=== PATIENT | female | born 1960 | race Caucasian/White ===

== ENCOUNTER → 2023-11-23 | Outpatient (CLI) | payer MEDICARE ==
--- NOTE | 2023-11-23 13:25 | USB ---
Reason for Exam: Additional evaluation requested from abnormal screening. Patient History: Menarche at age 13. First Full-Term at age 20. Postmenopausal. Estrogen for 5 years from age 43 until age 50. Reduction on the Right side. Reduction on the Left side. Excisional Biopsy on the Left side. Maternal aunt had breast cancer, age 68. Mother had breast cancer, age 63. Risk Values: Susanna 5 year model risk: 3.6%. NCI Lifetime model risk: 14.5%. Technique: Method: Targeted. Prior Study Comparison: 04/05/2008 Screening Mammogram, [facility]. 06/26/2009 Bilateral Screening Mammogram, [facility]. 07/28/2010 Bilateral Screening Mammogram, [facility]. Findings: The upper outer quadrant of the left breast, the axilla of the left breast and the retroareolar of the left breast were scanned. There is an irregular hypoechoic area with some posterior shadowing. The spiculated densities are suggestive for malignancy and measures 1.6 x 2.1 x 1.4 cm. This is taller than wide. This is located 3:00 position 10 cm from the nipple. This correlates with the mammographic finding. Overall Assessment: Highly suggestive of malignancy, BI-RAD 5 Management: Surgical Consultation of the left breast. Ultrasound Core Biopsy of the left breast. A clinical breast exam by your physician is recommended on an annual basis and results should be correlated with mammographic findings. This exam should not preclude additional follow-up of suspicious palpable abnormalities. Results were given to the patient verbally at the time of exam. Electronically signed and approved by: Karl Patel D.O. Radiologis
== END | disposition home or self-care (01) ==
LOC: RADUSWWP 11:15
PROVIDERS: ATTEND Family Medicine
DX: R92.8 Other abnormal and inconclusive findings on diagnostic imaging of breast (principal); Z80.3 Family history of malignant neoplasm of breast; Z78.0 Asymptomatic menopausal state

== ENCOUNTER → 2023-12-01 | Day surgery (SDC) | payer MEDICARE ==
--- NOTE | 2023-12-07 10:10 | MM ---
Reason for Exam: Post Procedure Mammogram. Last mammogram was performed 13 year(s) and 4 month(s) ago. Patient History: Menarche at age 13. First Full-Term at age 20. Postmenopausal. Estrogen for 5 years from age 43 until age 50. Reduction on the Right side. Reduction on the Left side. Excisional Biopsy on the Left side. Maternal aunt had breast cancer, age 68. Mother had breast cancer, age 63. Risk Values: Susanna 5 year model risk: 3.6%. NCI Lifetime model risk: 14.5%. Prior Study Comparison: 10/10/1997 Bilateral Diagnostic Mammogram, [facility]. 11/28/1999 Bilateral Special View Mammogram, [facility]. 04/05/2008 Screening Mammogram, [facility]. 06/26/2009 Bilateral Screening Mammogram, [facility]. 07/28/2010 Bilateral Screening Mammogram, [facility]. 11/23/2023 Left US breast workup limited , [facility]. Tissue Density: Left: The breasts are heterogeneously dense, which may obscure small masses. Pathology Description: Location: 3 o'clock. Marker Left Behind. Needle Type: Mammotome Cores: 5 Skin Nicks: 1 Gauge: 13 The procedure of ultrasound guided core biopsy was explained to the patient. Benefits, alternatives, and risks were discussed. An informed consent was then obtained. A timeout was performed. The patient was placed in supine positioning for imaging and for the procedure. The overlying skin was prepped and draped in usual sterile fashion. Lidocaine was used as anesthetic into the skin and subcutaneous tissue up to area of concern in the left breast. A small skin krystal was made with surgical scalpel. Under ultrasound guidance, a 12-gauge vacuum assisted biopsy gun device was used to obtain 5 core samples. A biopsy clip was left in lesion. Hydromark coil core marker was placed. The patient tolerated the procedure well without any immediate complication. The patient was kept in the radiology department for short stay after the procedure and then discharged home in stable condition. Postprocedure mammogram: The patient was transferred to mammography for physician ordered post procedure mammogram for clip placement verification. Post procedure mammogram clip in the mid lateral breast. This appears to correlate with the previous palpable abnormality. Impression: Successful ultrasound guided core biopsy of area of concern in the left breast, full pathology results to follow. Recommendations: 1. Recommendations are pending pathology results. Pathology Results: Result: Malignant, Invasive ductal carcinoma. Pathology and radiology were reviewed. Findings are concordant. 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 See Surgical Pathology Cancer Case Summary. Overall Assessment: Malignant Assessment: MG diagnostic mammo LT wo CAD. - Left: Known biopsy proven malignancy, BI-RAD 6. Management: Surgical Consultation of the left breast. Electronically signed and approved by: Karl Patel D.O. Radiologis
== END ==
LOC: RADUSWWP 12:56
PROVIDERS: ATTEND Surgery
DX: D05.12 Intraductal carcinoma in situ of left breast (principal); R92.8 Other abnormal and inconclusive findings on diagnostic imaging of breast; Z17.0 Estrogen receptor positive status [ER+]; Z78.0 Asymptomatic menopausal state
CPT/HCPCS: 88305; 88342; 88341; 77065; 19083; A4648

== ENCOUNTER → 2024-10-12 | Outpatient (CLI) | payer MEDICARE ==
--- NOTE | 2024-10-12 15:07 | USB ---
Reason for Exam: Clinical finding. Patient History: Menarche at age 13. First Full-Term at age 20. Postmenopausal. Breast cancer, left, age 63. Estrogen for 5 years from age 43 until age 50. 12/01/2023, Malignant US biopsy breast VAD LT on the left side. Reduction on the Right side. Reduction on the Left side. Excisional Biopsy on the Left side. Maternal aunt had breast cancer, age 68. Mother had breast cancer, age 63. Technique: Method: Whole Breast Handheld. Prior Study Comparison: 06/26/2009 Bilateral Screening Mammogram, [facility]. 07/28/2010 Bilateral Screening Mammogram, [facility]. 12/01/2023 Left MG diagnostic mammo LT wo CAD., [facility]. Findings: The whole breast of the left breast, the axilla of the left breast and the retroareolar of the left breast were scanned. A complete US of all four quadrants of the left breast, axilla, and retro-areolar region were reviewed. Known, biopsy-proven carcinoma 3:00 left breast, 10 cm from the nipple, currently measuring larger at 2.4 cm versus 1.9 cm, previously. New is a vertically oriented, hypoechoic area in the axilla measuring 9 x 6 x 5 mm. Possible small, replaced lymph node for which tissue sampling is recommended. No other solid or cystic lesion or axillary adenopathy. Overall Assessment: Known biopsy proven malignancy, BI-RAD 6 Management: Ultrasound Core Biopsy of the left breast. Axillary site. Surgical consultation for patient's missed surgery. Recommend additional ongoing oncologic management/follow-up. Results were given to the patient verbally at the time of exam. [facility], , 10/12/2024 3:02 PM. Electronically signed and approved by: Gilma Mehta M.D. Radiologist
--- NOTE | 2024-10-12 19:04 | CT ---
EXAMINATION TYPE: CT ChestAbdPelvis w con DATE OF EXAM: 10/12/2024 5:19 PM COMPARISON: 10/12/2024 ultrasound. CLINICAL INDICATION: Female, 64 years old with history of C50.812 BREAST; LEFT BREAST MASS, breast ca Technique: CT ChestAbdPelvis w con; Multiple axial images were obtained. Two-dimensional coronal and sagittal reconstructions were obtained. Contrast used:100ml mL of Isovue 300 with IV Contrast, (None if empty) Oral contrast used: with Oral Contrast CT DLP: 1564.3 mGycm, Automated exposure control for dose reduction was used. Findings: CHEST: LUNGS/ PLEURA: No focal consolidation, pneumothorax or pleural effusion. Scattered pulmonary nodules including right lower lobe superior segment series 10 image 107 measuring 6 mm and image 103 measurin g 5 mm. 5 mm left lower lobe anterior nodule series 10 image 41. AIRWAY: Patent and unremarkable. HEART: Size within normal limits. No significant coronary artery calcifications. MEDIASTINUM: No gross evidence of adenopathy. VASCULATURE: No aortic aneurysm. MUSCULOSKELETAL: No acute osseous abnormalities. Severe degeneration changes shoulder with joint join t articulation. SOFT TISSUES/LYMPH NODES: Left breast mass measuring 16 x 17 mm no enlarged left axillary lymph nodes . LOWER NECK: No significant findings. ABDOMEN: ABDOMEN LIVER: Diffusely hypoattenuating parenchyma. GALLBLADDER AND BILE DUCTS: Gallbladder is surgically absent with mild intrahepatic and extra hepatic biliary dilatation up to 28 mm likely physiologic and a postcholecystectomy change. No evidence of c holedocholithiasis. PANCREAS: Unremarkable. SPLEEN: Unremarkable. ADRENAL GLANDS: Unremarkable. KIDNEYS AND URETERS: No evidence of hydronephrosis or obstructing renal calculus. The ureters are unr emarkable. 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 REPRODUCTIVE: Unremarkable. ABDOMEN & PELVIS STOMACH AND BOWEL: No evidence of bowel obstruction. PERITONEUM/RETROPERITONEUM: No evidence of pneumoperitoneum or free fluid. VASCULATURE: No evidence of aortic aneurysm. MUSCULOSKELETAL: No acute osseous abnormalities, grade 1 anterolisthesis of L3 on L4. Multilevel dege neration changes with osteophyte formation disc space narrowing and osteophyte formation LYMPH NODES: No gross evidence for lymphadenopathy. SOFT TISSUE/ABDOMINAL WALL: Fat-containing right inguinal canal. IMPRESSION: 1. Left breast mass without evidence for lymphadenopathy. There are a few scattered pulmonary nodule s which are indeterminant given single exam can't history of malignancy. Attention on follow-up imagi ng for these lesions to exclude metastatic pulmonary disease. Consider correlation with either CT honorio ging of the chest at outside institutions. 2. Cholecystectomy changes with dilation of the central hepatic and extra hepatic biliary system. Co nsider further evaluation with MRCP. 3. Hepatic steatosis. 4. Urethra ureterocele Follow up recommendations for incidental pulmonary nodules are per [employer] or [employer]. [facility], , 10/12/2024 7:02 PM
--- NOTE | 2024-10-16 08:55 | MM ---
Reason for Exam: Additional evaluation requested from prior study. Last screening mammogram was performed 11 month(s) ago. Patient History: Menarche at age 13. First Full-Term at age 20. Postmenopausal. Breast cancer, left, age 63. Estrogen for 5 years from age 43 until age 50. 12/01/2023, Malignant US biopsy breast VAD LT on the left side. Reduction on the Right side. Reduction on the Left side. Excisional Biopsy on the Left side. Maternal aunt had breast cancer, age 68. Mother had breast cancer, age 63. Prior Study Comparison: 10/02/2016 Bilateral MG 3D screening mammo w/cad, Unknown. 11/11/2023 Bilateral MG screening mammo w CAD - 2, Unknown. 12/01/2023 Left MG diagnostic mammo LT wo CAD., [facility]. Tissue Density: There are scattered areas of fibroglandular density. Findings: Analyzed By CAD. Redemonstrated spiculated mass approximately 2:00 position left breast. Currently measuring 2.6 cm versus 1.4 cm last year. Microclip here related to previous biopsy. Unchanged coarse calcifications lateral anterior left breast. Otherwise, no significant change. Overall Assessment: Incomplete: need additional imaging evaluation, BI-RAD 0 Management: Diagnostic Breast Ultrasound of the left breast. [facility], , 10/12/2024 2:02 PM. Electronically signed and approved by: Gilma Mehta M.D. Radiologist
== END | disposition home or self-care (01) ==
LOC: RADMAMWWP 13:15
PROVIDERS: ATTEND Internal Medicine Hematology & Oncology
DX: C50.812 Malignant neoplasm of overlapping sites of left female breast (principal); E05.00 Thyrotoxicosis with diffuse goiter without thyrotoxic crisis or storm; D86.9 Sarcoidosis, unspecified; I10 Essential (primary) hypertension; Z78.0 Asymptomatic menopausal state; Z85.3 Personal history of malignant neoplasm of breast; R92.323 Mammographic fibroglandular density, bilateral breasts; Z80.3 Family history of malignant neoplasm of breast; K76.0 Fatty (change of) liver, not elsewhere classified; N28.89 Other specified disorders of kidney and ureter; R91.8 Other nonspecific abnormal finding of lung field; Z90.49 Acquired absence of other specified parts of digestive tract
CPT/HCPCS: 77066; 77062; 76641; 71260; 74177; Q9967

== ENCOUNTER → 2024-10-17 | Day surgery (SDC) | payer MEDICARE ==
--- NOTE | 2024-10-23 11:27 | MM ---
Reason for Exam: Post Procedure Mammogram. Last screening mammogram was performed less than 1 month ago. Patient History: Menarche at age 13. First Full-Term at age 20. Postmenopausal. Breast cancer, left, age 63. Estrogen for 5 years from age 43 until age 50. 12/01/2023, Malignant US biopsy breast VAD LT on the left side. Reduction on the Right side. Reduction on the Left side. Excisional Biopsy on the Left side. Maternal aunt had breast cancer, age 68. Mother had breast cancer, age 63. Prior Study Comparison: 10/02/2016 Bilateral MG 3D screening mammo w/cad, Unknown. 11/11/2023 Bilateral MG screening mammo w CAD - 2, Unknown. 12/01/2023 Left MG diagnostic mammo LT wo CAD., [facility]. 10/12/2024 Bilateral MG 3D diag mammo w/cad [facility], [facility]. Tissue Density: Left: There are scattered areas of fibroglandular density. Pathology Description: The procedure of ultrasound guided core biopsy was explained to the patient. Benefits, alternatives, and risks were discussed. An informed consent was then obtained. A time out was performed before procedure began. The patient was placed in supine positioning for imaging and for the procedure. Preprocedure imaging redemonstrates a 7 x 7 x 9 mm lymph node in the left axilla with loss of normal fatty hilum. The overlying skin was prepped and draped in usual sterile fashion. 5 ml 1% lidocaine buffered with bicarbonate was used as anesthetic into the skin and subcutaneous tissue . 5 cc of lidocaine with epinephrine is used deeper tissue Up to area of concern in the left axilla. Under ultrasound guidance, a 14-gauge biopsy gun device was used to obtain 3 core samples. Following this, a biopsy clip was left in the lesion. A post procedure mammogram was performed, clip seen and correlates with the mammographic finding in the left axilla. The patient tolerated the procedure well without any immediate complication. The patient was discharged home in stable condition. Impression: Successful, uncomplicated ultrasound guided core biopsy of area of concern in the left breast. PATHOLOGY STATUS: Results pending [facility], , 10/17/2024 3:34 PM. Pathology Results: Result: Malignant. Pathology and radiology were reviewed. Findings are concordant. LEFT AXILLA, NEEDLE CORE BIOPSY: Metastatic moderately differentiated ductal mammary carcinoma involving lymph node. Greatest dimension of metastatic deposit measures 6 mm. Focal lymph-vascular invasion is identified. See note. Overall Assessment: Malignant Assessment: MG diagnostic mammo LT wo CAD. - Left: Known biopsy proven malignancy, BI-RAD 6. Management: Surgical Consultation of the left breast. Electronically signed and approved by: Tulio Mercedes M.D.
== END ==
LOC: RADUSWWP 12:00
PROVIDERS: ATTEND Internal Medicine Hematology & Oncology
DX: C50.912 Malignant neoplasm of unspecified site of left female breast (principal); Z78.0 Asymptomatic menopausal state; Z80.3 Family history of malignant neoplasm of breast
CPT/HCPCS: 88305; 88342; 88341; 77065; 19083; 38505; A4648